=== PATIENT | female | born 1955 | race Caucasian/White ===

== ENCOUNTER → 2016-12-02 | Outpatient (CLI) | payer OTHER ==
[~2016-12-02] MED LIST: ABILIFY PO; ACETAMINOPHEN PO; ADVAIR 2501 DISK W/D PO; ALBUTEROL17 GM INH; AMITRYPTYLINE; AMITRYPTYLINE PO; AMLODIPINE BESY10 MG PO; ASPIRIN PO; BACLOFEN10 MG PO; BACTROBAN22 GM TP; BLOOD PRESSURE MED? PO; COMBIVENT INH14.7 GM INH; COMBIVENT U/D3 M2 INH; COUMADIN5 MG PO; EFFEXOR PO; EFFEXOR XR PO; EFFEXOR75 M1 PO; ERYTHROMYC3.5 GM OPT OD; FAMOTIDINE PO; FLUCONAZOLE100 M2 PO; LASIX PO; LORTAB 7.5-5001 TAB PO; LOVENOX80 MG/0.8 INJ; MOBIC PO; NYSTATIN5 ML PO; ORUDIS75 M1 PO; PAIN MED; PHENERGAN PO; PRAVACHOL20 MG PO; PREDNISONE10 MG/DOSE PO; PRILOSEC20 M1 PO; PROTONIX PO; PULMICORT0.5 MG/2 M IH; SEROQUEL PO; SEROQUEL300 M1 PO; ULTRAM PO; UNK MUSCLE RELAXER; UNK PAIN MED; XANAX1 MG PO; ZYVOX600 MG PO
[2016-12-02 10:43] LABS: HEMATOCRIT 48.4 % (35.0-45.0); HEMOGLOBIN 16.3 gm/dL (12.0-16.0); MEAN CELL VOLUME 98.4 FL (83-96); MEAN CORPUSCULAR HEMOGLOBIN 33.1 PG (28-34); MEAN CORPUSCULAR HGB CONC 33.7 g/dL (30-36); MEAN PLATELET VOLUME 8.9 FL (6.5-11.5); RED BLOOD COUNT 4.92 X10e (3.90-5.30); WHITE BLOOD COUNT 9.9 X10e3 (4.0-10.5)
[2016-12-02 11:14] LABS: ALBUMIN SERUM 3.9 g/dL (3.5-5.0); ALKALINE PHOSPHATASE 68 U/L (32-92); ALT (SGPT) 11 U/L (10-40); AST (SGOT) 14 U/L (10-42); BILIRUBIN,TOTAL 0.2 mg/dL (0.2-2.0); BLOOD UREA NITROGEN 11 mg/dL (9-23); BUN/CREATININE RATIO 18.33; CALCIUM SERUM 8.5 mg/dL (8.4-10.2); CARBON DIOXIDE 27 mmol/L (22-31); CHLORIDE 105 mmol/L (100-111); CREATININE SERUM 0.6 mg/dL (0.6-1.4); GLOM FILT RATE Estimated ABOVE60 mL/min (>60); GLUCOSE FASTING 95 mg/dL (70-110); PROTEIN TOTAL SERUM 7.3 g/dL (6.0-8.3); SODIUM 134 mmol/L (135-145)
== END | disposition home or self-care (01) ==
LOC: CLAB 10:03
PROVIDERS: Nurse Practitioner Family
DX: B19.20 Unspecified viral hepatitis C without hepatic coma (principal)
CPT/HCPCS: 36415; 80053; 85027; 87522

== ENCOUNTER → 2017-03-10 | Outpatient (CLI) | payer OTHER ==
--- NOTE | ~2017-03-10 | CR181 ---
[facility] A Service of [facility] RADIOLOGY TEXT RESULTS PATIENT: BEL CLAYTON LOCATION: [facility] : 57 UNIT #: [id number] AGE: [address]: Jake Villa Jr [employer]YSTAL [employer]AT [employer] SEX: F ORDER DR: [id number] [facility] [address] [facility]. [place], [place] [address] [id number] O MR#: [id number] Acc #: [id number] NAME: BEL CLAYTON : 1955 SEX: F STUDY DATE/TIME: 03/10/2017 10:39 UNIT: [facility] ROOM: STUDY DESCRIPTION: CR Lumbar Spine 2 or 3 Views Attending Physician: Jake Villa Jr., Noman.P.RAndrew Referring Physician: Jake Villa Jr., Noman.P.RAndrew Ordering Physician: Jake Villa Jr., A.P.R.Bri Primary Care Physician: Jake Villa Jr., Noman.P.RAndrew MEDICAL IMAGING REPORT This report is preliminary unless electronic signature is present EXAM Three views lumbar spine. DATE 03/10/2017 HISTORY 61-year-old female with left-side lower back pain for 6 months. COMPARISON Lumbar spine radiographs, 03/02/2010. FINDINGS There is new grade 1/2 anterolisthesis of L4 upon L5 (1.1 cm). There is advanced loss of disc height predominately anteriorly with endplate sclerosis. There is new grade 1 anterolisthesis of L3 upon L4 (3 mm). The L3-4 disc space height appears maintained. Advanced facet arthropathy is thought to be present at L3-4, L4-5, and to a lesser degree at L2-3 and L5-S1. No acute lumbar spine fracture is seen. Advanced calcific atherosclerosis is noted within the abdominal aorta. No sacroiliac joint diastasis. Cholecystectomy. Moderate colonic stool burden. IMPRESSION 1. New approximate 11 mm grade 1/2 anterolisthesis L4 upon L5 with advanced loss of disc height in comparison to 03/02/2010. [facility] A Service of [facility] RADIOLOGY TEXT RESULTS PATIENT: BEL CLAYTON LOCATION: [facility] : 57 UNIT #: [id number] AGE: [address]: Jake Villa Jr [employer]YSTAL [employer]AT [employer] SEX: F ORDER DR: 2. New grade 1 3 mm anterolisthesis L3 upon L4 since 03/02/2010. 3. Advanced L3-4 and L4-5 facet arthropathy. 4. No acute lumbar spine fracture. Dictated by... Flora Armando M.D. THIS IS AN ELECTRONICALLY VERIFIED REPORT Flora Armando M.D. at 03/11/2017 6:13 AM [facility]/erna TD: 03/10/2017 14:26 JOB #: [id number] MEDICAL IMAGING REPORT Page 1 of 1 COPY
== END | disposition home or self-care (01) ==
LOC: CRAD 10:24
DX: M54.5 Low back pain (principal); M43.16 Spondylolisthesis, lumbar region; M46.96 Unspecified inflammatory spondylopathy, lumbar region
CPT/HCPCS: 72100